=== PATIENT | male | born 1965 | race Caucasian/White ===

== ENCOUNTER 2019-07-31 07:32 | Outpatient (CLI) | payer OTHER, SELFPAY ==
[2019-07-31 07:53] LABS: Basophils Absolute Auto 0.04 K/mm3 (0.00-0.10); Basophils Percent Auto 0.7 % (0.0-1.0); Eosinophils Absolute Auto 0.25 K/mm3 (0.02-0.50); Eosinophils Percent Auto 4.7 % (1.0-6.0); Hematocrit 45.7 % (40.0-54.0); Hemoglobin 15.4 g/dL (14.0-18.0); Immature Granulocyte Absolute 0.01 K/mm3 (0.00-0.00); Immature Granulocyte Percent A 0.2 % (0.0-0.0); Lymphocytes Absolute Auto 1.75 K/mm3 (1.10-4.50); Lymphocytes Percent Auto 32.6 % (18.0-42.0); Mean Corpuscular HGB Conc 33.7 g/dL (32.0-36.0); Mean Corpuscular Hemoglobin 31.8 pg (27.0-31.0); Mean Corpuscular Volume 94.4 fL (78.0-102.0); Mean Platelet Volume 9.4 fl (8.7-11.0); Monocytes Absolute Auto 0.59 K/mm3 (0.10-0.90); Neutrophils Absolute Auto 2.7 K/mm3 (1.7-7.2); Neutrophils Percent Auto 50.8 % (50.0-70.0); Platelet Count Result 220 K/mm3 (150-420); Red Blood Count 4.84 M/mm3 (4.70-6.10); Red Cell Distribution Width 12.8 % (11.6-14.4); White Blood Count 5.4 K/mm3 (4.8-10.8)
[2019-07-31 08:04] LABS: Creatinine Urine 133.41 mg/dL (40-278); MALB Creatinine Ratio 5.2 mg/g (0-30)
[2019-07-31 08:06] LABS: Hemoglobin A1C 6.8 % (<5.7)
[2019-07-31 08:56] LABS: Alanine Aminotransferase 37 U/L (16-63); Albumin Level 4.1 g/dL (3.4-5.0); Alkaline Phosphatase 58 U/L (46-116); Anion Gap 12.3 mmol/L (7-16); Aspartate Amino Transferase 26 U/L (15-37); Bilirubin,Total 0.5 mg/dL (0.00-1.00); Blood Urea Nitrogen 25 mg/dL (7-18); Calcium 9.1 mg/dL (8.5-10.1); Carbon Dioxide 29 mmol/L (21-32); Chloride 104 mmol/L (98-108); Cholesterol 168 mg/dL (0-200); Estimated Glomerular Filt Rate > 60; Glucose 126 mg/dL (70-99); HDL Direct 85 mg/dL (40-60); LDL Cholesterol Calculated 76 mg/dL (<130); Osmolality Calculated 296 mOsm/kg (285-295); Potassium 5.3 mmol/L (3.5-5.1); Prostate Specific Antigen 1.4 ng/mL (< OR = 4.0); Sodium 140 mmol/L (136-145); Thyroid Stimulating Hormone 2.79 uIU/mL (0.36-3.74); Total Protein 7.6 g/dL (6.4-8.2); Triglycerides 35 mg/dL (0-150)
== END 2019-07-31 07:33 | disposition home or self-care (01) ==
LOC: CHSLAB 07:34
PROVIDERS: PCP Internal Medicine; Visit Provider Internal Medicine
DX: Z00.00 Encounter for general adult medical examination without abnormal findings (principal); E10.9 Type 1 diabetes mellitus without complications; Z12.5 Encounter for screening for malignant neoplasm of prostate
CPT/HCPCS: 36415; 80053; 80061; 82043; 83036; 84153; 84443; 85025; G0103

== ENCOUNTER 2020-01-13 08:04 | Outpatient (CLI) | payer OTHER, SELFPAY ==
[2020-01-13 09:04] LABS: Anion Gap 7 mmol/L (8-16); Blood Urea Nitrogen 21 mg/dL (7-18); Calcium 9.4 mg/dL (8.5-10.1); Carbon Dioxide 29 mmol/L (21-32); Chloride 104 mmol/L (98-108); Estimated Glomerular Filt Rate > 60; Glucose 100 mg/dL (70-99); Osmolality Calculated 293 mOsm/kg (285-295); Potassium 4.8 mmol/L (3.5-5.1); Sodium 140 mmol/L (136-145)
== END 2020-01-13 08:05 | disposition home or self-care (01) ==
LOC: CHSLAB 08:06
PROVIDERS: PCP Internal Medicine; Visit Provider Internal Medicine
DX: E87.5 Hyperkalemia (principal)
CPT/HCPCS: 36415; 80048

== ENCOUNTER 2020-09-23 08:17 | Outpatient (CLI) | payer OTHER, SELFPAY ==
[2020-09-23 08:33] LABS: Basophils Absolute Auto 0.03 K/mm3 (0.00-0.10); Basophils Percent Auto 0.6 % (0.0-1.0); Eosinophils Absolute Auto 0.14 K/mm3 (0.02-0.50); Eosinophils Percent Auto 2.9 % (1.0-6.0); Hematocrit 43.2 % (40.0-54.0); Hemoglobin 14.4 g/dL (14.0-18.0); Immature Granulocyte Absolute 0.01 K/mm3 (0.00-0.00); Immature Granulocyte Percent A 0.2 % (0.0-0.0); Lymphocytes Percent Auto 29.4 % (18.0-42.0); Mean Corpuscular HGB Conc 33.3 g/dL (32.0-36.0); Mean Corpuscular Hemoglobin 31.6 pg (27.0-31.0); Mean Corpuscular Volume 94.7 fL (78.0-102.0); Monocytes Absolute Auto 0.47 K/mm3 (0.10-0.90); Monocytes Percent Auto 9.9 % (2.0-11.0); Neutrophils Absolute Auto 2.7 K/mm3 (1.7-7.2); Platelet Count Result 203 K/mm3 (150-420); Red Blood Count 4.56 M/mm3 (4.70-6.10); Red Cell Distribution Width 12.7 % (11.6-14.4); White Blood Count 4.8 K/mm3 (4.8-10.8)
[2020-09-23 08:42] LABS: MALB Creatinine Ratio 10.5 mg/g (0-30); Microalbumin Urine Random < 13.0 mg/L
[2020-09-23 08:44] LABS: Hemoglobin A1C 6.7 % (<5.7)
[2020-09-23 10:23] LABS: Alanine Aminotransferase 42 U/L (16-63); Albumin Level 3.9 g/dL (3.4-5.0); Alkaline Phosphatase 60 U/L (46-116); Anion Gap 9 mmol/L (8-16); Aspartate Amino Transferase 28 U/L (15-37); Bilirubin,Total 0.6 mg/dL (0.00-1.00); Blood Urea Nitrogen 20 mg/dL (7-18); Calcium 9.2 mg/dL (8.5-10.1); Carbon Dioxide 28 mmol/L (21-32); Chloride 104 mmol/L (98-108); Cholesterol 163 mg/dL (0-200); Estimated Glomerular Filt Rate > 60; Folic Acid 7.9 ng/mL (8.6->20); Glucose 111 mg/dL (70-99); HDL Direct 81 mg/dL (40-60); LDL Cholesterol Calculated 77 mg/dL (<130); Osmolality Calculated 295 mOsm/kg (285-295); Potassium 4.5 mmol/L (3.5-5.1); Prostate Specific Antigen 1.6 ng/mL (< OR = 4.0); Sodium 141 mmol/L (136-145); Thyroid Stimulating Hormone 3.13 uIU/mL (0.36-3.74); Total Protein 7.2 g/dL (6.4-8.2); Triglycerides 26 mg/dL (0-150); Vitamin B12 435 pg/mL (193-986)
== END 2020-09-23 08:18 | disposition home or self-care (01) ==
PROVIDERS: PCP Internal Medicine; Visit Provider Internal Medicine
DX: Z00.00 Encounter for general adult medical examination without abnormal findings (principal); E11.9 Type 2 diabetes mellitus without complications; Z12.5 Encounter for screening for malignant neoplasm of prostate; R53.83 Other fatigue
CPT/HCPCS: 36415; 80053; 80061; 82043; 82607; 82746; 83036; 84153; 84443; 85025; G0103

== ENCOUNTER 2021-03-26 09:09 | Outpatient (CLI) | payer OTHER, SELFPAY ==
[2021-03-26 09:21] LABS: Basophils Absolute Auto 0.03 K/mm3 (0.00-0.10); Basophils Percent Auto 0.6 % (0.0-1.0); Eosinophils Absolute Auto 0.15 K/mm3 (0.02-0.50); Eosinophils Percent Auto 2.8 % (1.0-6.0); Hematocrit 45.3 % (40.0-54.0); Hemoglobin 15.3 g/dL (14.0-18.0); Immature Granulocyte Absolute 0.01 K/mm3 (0.00-0.00); Immature Granulocyte Percent A 0.2 % (0.0-0.0); Lymphocytes Percent Auto 31.8 % (18.0-42.0); Mean Corpuscular HGB Conc 33.8 g/dL (32.0-36.0); Mean Corpuscular Hemoglobin 32.4 pg (27.0-31.0); Monocytes Absolute Auto 0.62 K/mm3 (0.10-0.90); Monocytes Percent Auto 11.6 % (2.0-11.0); Neutrophils Absolute Auto 2.8 K/mm3 (1.7-7.2); Platelet Count Result 210 K/mm3 (150-420); Red Blood Count 4.72 M/mm3 (4.70-6.10); Red Cell Distribution Width 12.4 % (11.6-14.4); White Blood Count 5.4 K/mm3 (4.8-10.8)
[2021-03-26 09:28] LABS: Creatinine Urine 126.19 mg/dL (40-278); MALB Creatinine Ratio 10.3 mg/g (0-30); Microalbumin Urine Random < 13.0 mg/L
[2021-03-26 09:29] LABS: Hemoglobin A1C 7.1 % (<5.7)
[2021-03-26 10:24] LABS: Alanine Aminotransferase 39 U/L (16-63); Albumin Level 4.1 g/dL (3.4-5.0); Alkaline Phosphatase 61 U/L (46-116); Anion Gap 7 mmol/L (8-16); Aspartate Amino Transferase 26 U/L (15-37); Bilirubin,Total 0.6 mg/dL (0.00-1.00); Blood Urea Nitrogen 20 mg/dL (7-18); Calcium 8.8 mg/dL (8.5-10.1); Carbon Dioxide 28 mmol/L (21-32); Chloride 103 mmol/L (98-108); Cholesterol 154 mg/dL (0-200); Estimated Glomerular Filt Rate > 60; Folic Acid 7.7 ng/mL (8.6->20); Glucose 112 mg/dL (70-99); HDL Direct 80 mg/dL (40-60); LDL Cholesterol Calculated 70 mg/dL (<130); Osmolality Calculated 289 mOsm/kg (285-295); Potassium 4.7 mmol/L (3.5-5.1); Sodium 138 mmol/L (136-145); Thyroid Stimulating Hormone 2.11 uIU/mL (0.36-3.74); Total Protein 7.5 g/dL (6.4-8.2); Triglycerides < 22 mg/dL (0-150); Vitamin B12 426 pg/mL (193-986)
== END 2021-03-26 09:10 | disposition home or self-care (01) ==
LOC: CHSLAB 09:10
PROVIDERS: PCP Internal Medicine; Visit Provider Internal Medicine
DX: E11.9 Type 2 diabetes mellitus without complications (principal); R53.83 Other fatigue
CPT/HCPCS: 36415; 80053; 80061; 82043; 82607; 82746; 83036; 84443; 85025

== ENCOUNTER 2021-10-05 09:34 | Outpatient (CLI) | payer OTHER, SELFPAY ==
[2021-10-05 09:49] LABS: Basophils Absolute Auto 0.03 K/mm3 (0.00-0.10); Basophils Percent Auto 0.6 % (0.0-1.0); Eosinophils Absolute Auto 0.11 K/mm3 (0.02-0.50); Eosinophils Percent Auto 2.2 % (1.0-6.0); Hematocrit 46.6 % (40.0-54.0); Hemoglobin 15.9 g/dL (14.0-18.0); Immature Granulocyte Absolute 0.02 K/mm3 (0.00-0.00); Immature Granulocyte Percent A 0.4 % (0.0-0.0); Lymphocytes Absolute Auto 1.54 K/mm3 (1.10-4.50); Mean Corpuscular HGB Conc 34.1 g/dL (32.0-36.0); Mean Corpuscular Hemoglobin 32.6 pg (27.0-31.0); Mean Corpuscular Volume 95.5 fL (78.0-102.0); Mean Platelet Volume 9.1 fl (8.7-11.0); Monocytes Absolute Auto 0.59 K/mm3 (0.10-0.90); Monocytes Percent Auto 11.9 % (2.0-11.0); Neutrophils Absolute Auto 2.7 K/mm3 (1.7-7.2); Neutrophils Percent Auto 53.9 % (50.0-70.0); Platelet Count Result 228 K/mm3 (150-420); Red Blood Count 4.88 M/mm3 (4.70-6.10); Red Cell Distribution Width 12.8 % (11.6-14.4)
[2021-10-05 10:09] LABS: Creatinine Urine 98.06 mg/dL (40-278); Hemoglobin A1C 6.5 % (<5.7); MALB Creatinine Ratio 13.2 mg/g (0-30); Microalbumin Urine Random < 13.0 mg/L
[2021-10-05 10:34] LABS: Alanine Aminotransferase 54 U/L (16-63); Alkaline Phosphatase 62 U/L (46-116); Anion Gap 6 mmol/L (8-16); Aspartate Amino Transferase 36 U/L (15-37); Bilirubin,Total 0.6 mg/dL (0.00-1.00); Blood Urea Nitrogen 16 mg/dL (7-18); Calcium 8.8 mg/dL (8.5-10.1); Carbon Dioxide 30 mmol/L (21-32); Chloride 103 mmol/L (98-108); Cholesterol 166 mg/dL (0-200); Estimated Glomerular Filt Rate > 60; Folic Acid 9.1 ng/mL (8.6->20); Glucose 53 mg/dL (70-99); HDL Direct 89 mg/dL (40-60); LDL Cholesterol Calculated 72 mg/dL (<130); Osmolality Calculated 286 mOsm/kg (285-295); Potassium 4.3 mmol/L (3.5-5.1); Prostate Specific Antigen 1.7 ng/mL (< OR = 4.0); Sodium 139 mmol/L (136-145); Total Protein 7.9 g/dL (6.4-8.2); Triglycerides 24 mg/dL (0-150); Vitamin B12 430 pg/mL (193-986)
== END 2021-10-05 09:35 | disposition home or self-care (01) ==
LOC: CHSLAB 09:36
PROVIDERS: PCP Internal Medicine; Visit Provider Internal Medicine
DX: R53.83 Other fatigue (principal); E11.9 Type 2 diabetes mellitus without complications; Z12.5 Encounter for screening for malignant neoplasm of prostate
CPT/HCPCS: 36415; 80053; 80061; 82043; 82607; 82746; 83036; 84153; 84443; 85025; G0103

== ENCOUNTER 2022-03-08 07:26 | Outpatient (CLI) | payer OTHER, SELFPAY ==
[2022-03-08 07:55] LABS: Anion Gap 5 mmol/L (8-16); Blood Urea Nitrogen 20 mg/dL (7-18); Carbon Dioxide 31 mmol/L (21-32); Chloride 102 mmol/L (98-108); Estimated Glomerular Filt Rate > 60; Glucose 153 mg/dL (70-99); Osmolality Calculated 291 mOsm/kg (285-295); Sodium 138 mmol/L (136-145)
[2022-03-12 06:59] LABS: C-Peptide 0.16 ng/mL (0.80-3.85)
== END 2022-03-08 07:27 | disposition home or self-care (01) ==
LOC: CHSLAB 07:27
PROVIDERS: PCP Internal Medicine; Visit Provider Internal Medicine Endocrinology, Diabetes & Metabolism
DX: E10.9 Type 1 diabetes mellitus without complications (principal)
CPT/HCPCS: 36415; 80048; 84681

== ENCOUNTER 2022-12-14 07:18 | Outpatient (CLI) | payer OTHER, SELFPAY ==
[2022-12-14 07:33] LABS: Basophils Absolute Auto 0.04 K/mm3 (0.00-0.10); Basophils Percent Auto 0.4 % (0.0-1.0); Eosinophils Absolute Auto 0.15 K/mm3 (0.02-0.50); Eosinophils Percent Auto 1.7 % (1.0-6.0); Hematocrit 42.2 % (40.0-54.0); Hemoglobin 14.3 g/dL (14.0-18.0); Immature Granulocyte Absolute 0.04 K/mm3 (0.00-0.00); Immature Granulocyte Percent A 0.4 % (0.0-0.0); Lymphocytes Absolute Auto 1.33 K/mm3 (1.10-4.50); Lymphocytes Percent Auto 14.8 % (18.0-42.0); Mean Corpuscular HGB Conc 33.9 g/dL (32.0-36.0); Mean Corpuscular Hemoglobin 32.5 pg (27.0-31.0); Mean Corpuscular Volume 95.9 fL (78.0-102.0); Mean Platelet Volume 9.2 fl (8.7-11.0); Monocytes Absolute Auto 0.65 K/mm3 (0.10-0.90); Monocytes Percent Auto 7.2 % (2.0-11.0); Neutrophils Absolute Auto 6.8 K/mm3 (1.7-7.2); Neutrophils Percent Auto 75.5 % (50.0-70.0); Platelet Count Result 217 K/mm3 (150-420); Red Cell Distribution Width 12.4 % (11.6-14.4)
[2022-12-14 07:38] LABS: Creatinine Urine 105.52 mg/dL (40-278)
[2022-12-14 07:58] LABS: MALB Creatinine Ratio 12.3 mg/g (0-30); Microalbumin Urine Random < 13.0 mg/L
[2022-12-14 08:33] LABS: Alanine Aminotransferase 40 U/L (16-63); Albumin Level 3.9 g/dL (3.4-5.0); Alkaline Phosphatase 63 U/L (46-116); Anion Gap 6 mmol/L (8-16); Aspartate Amino Transferase 25 U/L (15-37); Bilirubin,Total 0.4 mg/dL (0.00-1.00); Blood Urea Nitrogen 17 mg/dL (7-18); Carbon Dioxide 30 mmol/L (21-32); Chloride 103 mmol/L (98-108); Cholesterol 154 mg/dL (0-200); Estimated Glomerular Filt Rate > 60; Glucose 215 mg/dL (70-99); HDL Direct 63 mg/dL (40-60); LDL Cholesterol Calculated 82 mg/dL (<130); Osmolality Calculated 295 mOsm/kg (285-295); Potassium 5.1 mmol/L (3.5-5.1); Prostate Specific Antigen 1.3 ng/mL (< OR = 4.0); Sodium 139 mmol/L (136-145); Thyroid Stimulating Hormone 2.59 uIU/mL (0.36-3.74); Total Protein 7.3 g/dL (6.4-8.2); Triglycerides 46 mg/dL (0-150)
== END 2022-12-14 07:19 | disposition home or self-care (01) ==
LOC: CHSLAB 07:19
PROVIDERS: PCP Internal Medicine; Visit Provider Internal Medicine
DX: Z00.00 Encounter for general adult medical examination without abnormal findings (principal); Z12.5 Encounter for screening for malignant neoplasm of prostate; E10.649 Type 1 diabetes mellitus with hypoglycemia without coma
CPT/HCPCS: 36415; 80053; 80061; 82043; 84153; 84443; 85025; G0103

== ENCOUNTER 2023-10-30 16:37 | Outpatient (CLI) | payer OTHER, SELFPAY ==
[2023-10-30 18:59] LABS: Toxigenic C. Diff NEGATIVE (NEGATIVE)
== END 2023-10-30 16:38 | disposition home or self-care (01) ==
LOC: CHSLAB 16:39
PROVIDERS: PCP Internal Medicine; Visit Provider Internal Medicine
DX: R19.7 Diarrhea, unspecified (principal)
CPT/HCPCS: 87045; 87427; 87449; 87493

== ENCOUNTER 2023-11-05 16:20 | Outpatient (CLI) | payer OTHER, SELFPAY ==
[2023-11-08 03:08] LABS: Tissue Transglutaminase IgA Ab <1.0 U/mL
== END 2023-11-05 16:21 | disposition home or self-care (01) ==
PROVIDERS: PCP Internal Medicine; Visit Provider Internal Medicine
DX: R19.7 Diarrhea, unspecified (principal)
CPT/HCPCS: 36415; 83516

== ENCOUNTER 2023-11-10 10:17 | Observation (INO) | payer OTHER, SELFPAY ==
--- NOTE | 2023-11-10 | ECHO_ITS ---
Patient Info Name: Navjot Peralta Age: 58 years : 1965 Gender: Male Ht: 74 in Wt: 223 lbs BSA: 2.32 m2 HR: 92 bpm BP: 135 / 85 mmHg Technical Quality: Fair Exam Date: 11/10/2023 3:39 PM Exam Location: Echo Lab Patient Status: Outpatient Admit Date: 11/10/2023 Staff Ordering Physician: Josh Alvarez APRN [employer] Teacher: Maryam Galdamez RDCS Attending Provider: William Armenta MD Referring Physician: Antonio WEBB; Exam Type: CA echo doppler w bubble study Study Info Indications - TIA workup Complete two-dimensional, color flow and Doppler transthoracic echocardiogram is performed with agitated saline. Contrast/Agitated Saline Contrast/Ag. Saline: Agitated Saline Amount: 14.00 ml IV Access Condition: patent with no signs of infiltration Summary 1. Left ventricular chamber dimension is normal. 2. Left ventricular systolic function is normal, estimated at 65-70%. 3. The left ventricular diastolic function is normal. 4. E/e' 8 is minimally elevated. 5. There is trace aortic valve regurgitation. 6. There is trace mitral valve regurgitation. 7. There is trace tricuspid valve regurgitation. 8. No pulmonary hypertension, estimated pulmonary arterial systolic pressure is 23 mmHg. 9. There is trace pulmonic regurgitation. Left Ventricle E/e' 8 is minimally elevated. Left ventricular chamber dimension is normal. Left ventricular systolic function is normal, estimated at 65-70%. The left ventricular diastolic function is normal. Right Ventricle Right ventricular systolic function is normal and with normal TAPSE 2.3 cm. Right ventricular chamber dimension is normal. Left Atria Left atrial chamber dimension is normal. Right Atria Right atrial chamber dimension is normal. Atrial Septum Agitated saline injection opacified right side cardiac chambers without shunt to left side cardiac chambers. Intact interatrial septum visualized by 2D and agitated saline imaging. Aortic Valve The aortic valve is trileaflet. There is no aortic valve stenosis. There is trace aortic valve regurgitation. Pulmonic Valve There is trace pulmonic regurgitation. Mitral Valve There is no mitral valve stenosis. There is trace mitral valve regurgitation. Tricuspid Valve There is trace tricuspid valve regurgitation. No pulmonary hypertension, estimated pulmonary arterial systolic pressure is 23 mmHg. Pericardium/Pleural There is no pericardial effusion. Inferior Vena Cava Normal inferior vena cava with >50% collapse upon inspiration consistent with normal right atrial pressure, 5 mmHg. Aorta The aortic root size at the sinus of Valsalva is normal. Left Ventricular Outflow Tract Name Value Normal LVOT 2D LVOT Diameter 2.2 cm LVOT Doppler LVOT Peak Gradient 8 mmHg LVOT Mean Gradient 3 mmHg LVOT VTI 25 cm LVOT VTI/AV VTI Ratio 1.2 LVOT Stroke Volume 99 ml LVOT CO 7.4 l/min LVOT CI 3.2 l/min/m2 Pulmonic Valve
--- NOTE | ~2023-11-10 | MR_ITS ---
EXAMINATION: MR brain/brain stem wo/w con DATE: 11/10/2023 14:28 INDICATION: Cerebrovascular accident. Vision loss. TECHNIQUE: Magnetic resonance imaging (MRI) of the brain and brainstem was performed without and with 20 mL MultiHance intravenous contrast. COMPARISON: Brain MRI 04/24/2013 FINDINGS: There is no intracranial hemorrhage, acute infarction, or abnormal intracranial mass lesion . The ventricles are normal in size. There is mild mucosal thickening in the paranasal sinuses. The o rbits are normal. The mastoid air cells are normal. IMPRESSION: 1. Normal brain. Reviewed, dictated and finalized at location A. IMPRESSION: 1. Normal brain.
--- NOTE | ~2023-11-10 | CT_ITS ---
EXAMINATION: CT brain wo con DATE: 11/10/2023 11:42 INDICATION: Peripheral vision loss. Blurred vision. TECHNIQUE: Computed tomography (CT) of the head was performed without intravenous contrast. The mA wa s adjusted according to patient size. Iterative reconstruction technique was employed. The dose-lengt h product was 605.33 mGy-cm. COMPARISON: Head CT 02/26/2008 FINDINGS: There is no intracranial hemorrhage, acute infarction, or abnormal intracranial mass lesion . The ventricles are normal in size. The orbits are normal. There is mild mucosal thickening in the p aranasal sinuses. The mastoid air cells are normal. IMPRESSION: 1. Normal brain. Reviewed, dictated and finalized at location A. IMPRESSION: 1. Normal brain.
--- NOTE | ~2023-11-10 | CT_ITS ---
EXAMINATION: CTA brain carotid DATE: 11/10/2023 18:34 INDICATION: vertebrobasilar TIA TECHNIQUE: Computed tomographic angiography (CTA) of the head and neck was performed with 100 mL Omni paque-350 intravenous contrast. Automated exposure control and iterative reconstruction technique wer e employed. The dose-length product was 1365.42 mGy-cm. Maximum intensity projection and volume rende red 3D-reconstructions were created by the technologist on a separate workstation. COMPARISON: CT and MR brain, same date. FINDINGS: CT BRAIN: No acute large vessel infarct, intracranial hemorrhage, mass, or hydrocephalus. CTA HEAD: No large vessel occlusion, aneurysm, high flow vascular malformation, nidus or extravasation. Symmetr ic parenchymal enhancement. Patent cerebral veins. CTA NECK: Aortic arch and proximal great vessels: Normal arch anatomy. No plaque. Right common carotid, carotid bifurcation, and internal carotid artery: No plaque.There is 0% stenosi s of the proximal right internal carotid artery relative to normal distal artery lumen diameter (NASC ET criteria). Left common carotid, carotid bifurcation, and internal carotid artery: No plaque.There is 0% stenosis of the proximal left internal carotid artery relative to normal distal artery lumen diameter (NASCET criteria). Vertebral arteries: No significant plaque or stenosis. The intradural right vertebral artery terminat es in the right PICA, a normal variant. The left vertebral artery is dominant. Other findings: Moderate multilevel cervical degenerative disc disease. Mild coronary artery calcific ation. IMPRESSION: No large vessel intracranial occlusion, high-grade intracranial stenosis, or aneurysm. No carotid or vertebral artery occlusion, dissection, or significant stenosis. Reviewed, dictated and finalized at location K. IMPRESSION: No large vessel intracranial occlusion, high-grade intracranial stenosis, or an eurysm. No carotid or vertebral artery occlusion, dissection, or significant stenosis.
--- NOTE | 2023-11-10 10:56 | ECG_ITS ---
Test Date: 2023-11-10 11:12:54 Measurements Intervals [place] Rate: 88 P: 28 OK: 159 QRS: 61 QRSD: 100 T: 29 QT: 358 QTc: 434 Interpretive Statements SINUS RHYTHM POSSIBLE RIGHT VENTRICULAR CONDUCTION DELAY [RSR (QR) IN V1/V2] OTHERWISE NORMAL ECG No previous ECG available for comparison Electronically Signed On 11-10-2023 12:38:08 CDT by Sukumar Mallory M.D.
--- NOTE | 2023-11-10 10:59 | ED.GENADULT ---
HPI - General Adult General Chief complaint: Unspecified Stated complaint: visual changes Time Seen by Provider: 11/10/23 10:47 History of Present Illness HPI narrative: Pt presents with peripheral vision loss that lasted about 60-90 minutes while at work this morning before resolving. Pt denies any other neuro symptoms or GUTIERREZ. Pt has DM but no neuro hx. Pt has also had several episodes of diarrhea a day for 3 weeks and has had negative stool studies and is negative for Celiac disease per pt. Related Data Allergies Allergy/AdvReac Type Severity Reaction Status Date / Time codeine Allergy Unknown Unknown Verified 11/10/23 13:19 Review of Systems Review of Systems: All systems reviewed & are unremarkable except as noted in HPI and below PMFSH Past Medical History Medical History Chondrodermatitis nodularis helicis Collapsed lung Collapsed lung Diabetes type I Dorsalgia Hx of seizure disorder Hypoglycemia unawareness associated with type 1 diabetes mellitus Partial seizures Skin neoplasm Surgical History Surgical History No pertinent past surgical history Family History Family History (Updated 11/10/23 @ 13:26 by Lorrie Vergara RN) Father Adult celiac disease Dementia Social History Social History Social History: Caffiene-4 cups coffee Smoking status: Never smoker Second hand tobacco smoke exposure: No Alcohol intake: current Drinks per week: 3 Alcohol use details: socially Substance use: never Do You Feel Safe in your Home?: Yes Lack of Transportation: No Lack of Food: Never True Current Housing: I Have Housing Concerned About Future Housing: No Difficulty Paying Gas/Electric Bills: No Difficulty Paying for Meds: No Currently Unemployed: No Education: Bachelor's Degree Difficulty w/ Childcare or Family Care: No Spiritual care concerns: No Exam HENMT: Head: normal to inspection Eyes: General: appearance normal, both eyes and all related structures Visual Barber: normal visual barber by confrontation Alignment and Position: alignment normal Periorbital: periorbital findings normal Eyelids: eyelids normal Conjunctivae: conjunctivae normal Sclera: sclerae normal Pupils: Equal, round and reactive pupils present EOM: EOMs intact bilaterally Neck: Neck: normal visual inspection and full ROM Resp: Effort & Inspection: normal respiratory effort Auscultation: clear to auscultation bilaterally Cardio: Rate: regular rate Rhythm: regular rhythm GI: Inspection: normal to inspection Auscultation: normal bowel sounds Skin: General skin exam: normal color Lesions: no lesions Rashes: no rashes Neuro: General: patient oriented x3 Cranial nerves: Yes CN's II-XII intact bilaterally, Yes facial sensation intact/muscles of mastication intact, Yes Equal, round and reactive pupils present, Yes Bilaterally intact EOM present and Yes Nystagmus not present Speech: normal speech Motor exam (neuro): 5/5 motor strength present throughout Sensory Exam: normal sensation Extrem: General: normal to inspection, full ROM and no clubbing, cyanosis or edema Psych: Appearance: grossly normal Mental Status: mental status grossly normal Speech and movement: Normal speech and movement present Affect: normal affect Attitude: cooperative Thought process: Normal thought process present Thought content: Yes Normal thought content present Insight: Good insight present (Psych) Course Vital Signs Vital signs: Vital Signs Pulse Rate 89 11/10/23 11:16 Temperature 97.8 F 11/10/23 13:22 Pulse Rate 99 11/10/23 16:00 Respiratory Rate 18 11/10/23 13:22 Blood Pressure 131/76 11/10/23 13:22 Pulse Oximetry 99 11/10/23 13:22 Medical Decision Making MDM Narrative Medical decision making narrative:
[2023-11-10 11:16] VITALS: PULSE 89
[2023-11-10 11:25] VITALS: RESP 20
[2023-11-10 11:28] LABS: Basophils Percent Auto 0.3 % (0.2-1.2); Eosinophils Absolute Auto 0.1 K/mm3 (0-0.3); Eosinophils Percent Auto 0.6 % (0-4.4); Hematocrit 43.3 % (42.0-52.0); Hemoglobin 14.8 g/dL (14.0-18.0); Immature Granulocyte Absolute 0.03 K/mm3 (0.00-0.031); Immature Granulocyte Percent A 0.3 % (0-0.5); Lymphocytes Absolute Auto 1.05 K/mm3 (0.9-3.2); Lymphocytes Percent Auto 11.1 % (18.3-44.2); Mean Corpuscular HGB Conc 34.2 g/dl (32-36); Mean Corpuscular Hemoglobin 32.4 pg (26-34); Mean Corpuscular Volume 94.7 fl (80-100); Mean Platelet Volume 8.9 fl (7.4-10.4); Monocytes Absolute Auto 0.9 K/mm3 (0.1-0.6); Monocytes Percent Auto 9.8 % (2.6-8.5); Neutrophils Absolute Auto 7.4 K/mm3 (1.3-6.7); Neutrophils Percent Auto 77.9 % (45.5-73.1); Platelet Count Result 222 k/mm3 (150-375); Red Blood Count 4.57 M/mm3 (4.6-6.20); Red Cell Distribution Width 12.8 % (11.5-14.5); White Blood Count 9.5 K/mm3 (4.5-10.0)
[2023-11-10 11:37] LABS: Appearance Urine Clear (Clear); Color Urine Yellow (Yellow); Glucose Urine UA Negative (Negative); Ketones Urine Trace mg/dL (Negative); Protein Urine Negative (Negative); Specific Grav Ur 1.009 (1.001-1.035); pH Urine 5.5 (5.0-9.0)
[2023-11-10 11:38] LABS: Add Urine Microscopic? YES; Bacteria Urine None Seen /hpf; Bilirubin Urine Negative (Negative); Blood Urine Negative (Negative); Leukocyte Esterase Ur 2+ LEU/UL (Negative); Nitrate Urine Negative (Negative); Non Pathogenic Casts 0-2; RBC Urine 0-2 /hpf (0-2); Squamous Epithelial Cell Urine None Seen /hpf (Few); Urobilinogen Urine 0.2 mg/dL (<2.0)
[2023-11-10 11:40] LABS: Alanine Aminotransferase 40 U/L (6-50); Albumin Level 4.5 g/dL (3.5-5.1); Alkaline Phosphatase 58 U/L (38-126); Anion Gap 10 mmol/L (4-12); Aspartate Amino Transferase 42 U/L (17-59); Bilirubin,Total 0.7 mg/dL (0.2-1.3); Blood Urea Nitrogen 19 mg/dL (9-20); Calcium 8.9 mg/dL (8.4-10.2); Carbon Dioxide 26 mmol/L (22-30); Chloride 99 mmol/L (98-107); Estimated Glomerular Filt Rate > 60; Glucose 165 mg/dL (65-110); Potassium 4.4 mmol/L (3.4-5.0); Sodium 135 mmol/L (137-145)
[2023-11-10 11:48] LABS: INR 0.9; Prothrombin Time 13.1 Seconds (11.1-14.7)
[2023-11-10 11:49] LABS: Partial Thromboplastin Time 27.4 Seconds (22.3-36.8)
[2023-11-10 11:51] LABS: Troponin I < 0.012 ng/mL (0.000-0.034)
[2023-11-10 12:35] VITALS: BP 135/83; PULSE 92; RESP 16; O2SAT 97
[2023-11-10 13:06] LABS: Cholesterol 146 mg/dL (0-200); HDL Direct 71 mg/dL; Triglycerides 41 mg/dL (<150)
[2023-11-10 13:18] LABS: LDL Cholesterol Direct 59 mg/dL
[2023-11-10 13:22] VITALS: BP 131/76; PULSE 82; RESP 18; TEMP 36.6; O2SAT 99
--- NOTE | 2023-11-10 13:23 | PM.IMHP ---
H&P: HPI History of Present Illness Date/Time: 11/10/23 13:23 Chief Complaint: Transient visual disturbance, TIA versus CVA Narrative: This is a 58-year-old male patient insulin-dependent diabetic patient who presented to the emergency department today with transient visual disturbance where he lost peripheral vision bilaterally while at work. Patient denies any strenuous activity at the time visual disturbance. He stated that the whole episode lasted about 15 minutes. He called his and came to the emergency department. Patient has history of hypoglycemia with his aunt treatment but blood sugar is controlled today. Patient has also been having frequent diarrhea ongoing for the last 3 weeks. He has undergone outpatient workup with negative C diff, negative open parasites, negative culture and is currently being tested for possible celiac disease which he states his father was diagnosed with in his 70s. Patient's usual routine for glucose management includes NovoLog 1 unit per 6 g of carbs plus 1 unit for every 40 points above 120 with pre meal blood sugar check. Patient does have continues glucose monitor present which will need to be removed for MRI. He also usually takes 28 units of Lantus with evening meal. We discussed in depth increasing the Lantus and only using sliding scale throughout mealtime usage rather than calculating for grams of carbs plus sliding scale. Patient somewhat hesitant to even temporarily change his routine. Review of Systems Review of Systems: All systems reviewed & are unremarkable except as noted in HPI and below PMFSH Past Medical History Medical History Chondrodermatitis nodularis helicis Collapsed lung Collapsed lung Diabetes type I Dorsalgia Hx of seizure disorder Hypoglycemia unawareness associated with type 1 diabetes mellitus Partial seizures Skin neoplasm Surgical History Surgical History No pertinent past surgical history Family History Family History (Updated 11/10/23 @ 13:26 by Lorrie Vergara RN) Father Adult celiac disease Dementia Social History Social History Social History: Caffiene-4 cups coffee Smoking status: Never smoker Second hand tobacco smoke exposure: No Alcohol intake: current Drinks per week: 3 Alcohol use details: socially Substance use: never Do You Feel Safe in your Home?: Yes Lack of Transportation: No Lack of Food: Never True Current Housing: I Have Housing Concerned About Future Housing: No Difficulty Paying Gas/Electric Bills: No Difficulty Paying for Meds: No Currently Unemployed: No Education: Bachelor's Degree Difficulty w/ Childcare or Family Care: No Spiritual care concerns: No Meds Home Medications and Allergies Home Medications Medication Instructions Recorded Confirmed Type glucose 4 gram chewable tablet 4 g PO Q15M PRN hypoglycemia #60 03/04/22 11/10/23 Rx (Dex4 Glucose) tabs blood sugar diagnostic (Accu-Chek #400 strips 09/12/22 11/10/23 Rx Fabiola Plus test strips) urine glucose-ketones test #50 ea 04/29/23 11/10/23 Rx blood-glucose sensor (Dexcom G7 #9 ea 09/09/23 11/10/23 Rx Sensor device) insulin aspart U-100 100 unit/mL 6 unit (0.06 mL) subcut TID #15 mL 09/09/23 11/10/23 Rx (3 mL) subcutaneous pen (Novolog FlexPen U-100 Insulin aspart) insulin glargine 100 unit/mL (3 28 unit (0.28 mL) subcut QPM #45 mL 09/09/23 11/10/23 Rx mL) subcutaneous pen (Lantus Solostar U-100 Insulin) lisinopril 2.5 mg tablet 2.5 mg PO DAILY #90 tabs 09/09/23 11/10/23 Rx ostomy supplies (Skin Prep Wipes) #50 ea 09/09/23 11/10/23 Rx pen needle, diabetic 31 gauge x #450 ea 09/09/23 11/10/23 Rx 5/16 (Pen Needle) Allergies Allergy/AdvReac Type Severity Reaction Status Date / Time codeine Allergy Unknown Unknown Verified
[2023-11-10 13:27] VITALS: BMI 28.7
[2023-11-10 16:00] VITALS: PULSE 99
[2023-11-10 16:45] LABS: Glucose Point of Care 131 mg/dl (65-105)
[2023-11-10] MEDS: INSULIN GLARGINE (*BKC) 100 UNITS/ML 40 UNITS SUB-Q (16:56)
--- NOTE | 2023-11-10 17:33 | WPDNEURCNPN ---
Assessment and Plan Assessment and plan (1) Transient vision disturbance of both eyes: Code(s): H53.9 - Unspecified visual disturbance Status: Acute (2) Insulin dependent diabetes mellitus: Status: Acute (3) Diarrhea: Code(s): R19.7 - Diarrhea, unspecified Status: Acute Plan The visual disturbance without any other metabolic problems or dehydration in a patient history of diabetes mellitus does raise possibility of a vascular event in which case since the symptoms of bilateral we have to think of basilar artery problem. MRI of the brain did not show any abnormality. I reviewed the findings so far. I would suggest a CT angiogram of the head and neck. I noted his LDL was already the lower and upper we do not into intervene. He has a Force worried about the chronic diarrhea and I shall leave this up to you and if he is seeing a general education professor investigate this further. Consult date: 11/10/23 HPI: Navjot Peralta is a 58 year old male with history of diabetes mellitus for last 22 years presented with the onset of symptoms of visual disturbance which lasted for approximately 1 hour. This unprovoked and he does not think that he had any nausea vomiting or vertigo or headache. He never had symptoms such as this before. He was disturbed that he went to a nurse nearby and who examined him and found blood pressure and vital signs were all within normal range. Subsequently his brought him to the emergency room. A CT scan of brain was performed which did not show any significant abnormality. By now an MRI of the brain has also been performed which did not show any abnormality. Symptoms have resolved and did not recur. He did not have any weakness or in upper lower limbs. He did not have any difficulties walking. Review of Systems Review of Systems: No recent febrile illness or major trauma reported. All systems reviewed & are unremarkable except as noted in HPI and below PMFSH Past Medical History Medical History Chondrodermatitis nodularis helicis Collapsed lung Collapsed lung Diabetes type I Dorsalgia Hx of seizure disorder Hypoglycemia unawareness associated with type 1 diabetes mellitus Partial seizures Skin neoplasm Surgical History Surgical History No pertinent past surgical history Family History Family History (Updated 11/10/23 @ 13:26 by Lorrie Vergara RN) Father Adult celiac disease Dementia Social History Social History Social History: Caffiene-4 cups coffee Smoking status: Never smoker Second hand tobacco smoke exposure: No Alcohol intake: current Drinks per week: 3 Alcohol use details: socially Substance use: never Do You Feel Safe in your Home?: Yes Lack of Transportation: No Lack of Food: Never True Current Housing: I Have Housing Concerned About Future Housing: No Difficulty Paying Gas/Electric Bills: No Difficulty Paying for Meds: No Currently Unemployed: No Education: Bachelor's Degree Difficulty w/ Childcare or Family Care: No Spiritual care concerns: No Meds Home Medications and Allergies Home Medications Medication Instructions Recorded Confirmed Type glucose 4 gram chewable tablet 4 g PO Q15M PRN hypoglycemia #60 03/04/22 11/10/23 Rx (Dex4 Glucose) tabs blood sugar diagnostic (Accu-Chek #400 strips 09/12/22 11/10/23 Rx Fabiola Plus test strips) urine glucose-ketones test #50 ea 04/29/23 11/10/23 Rx blood-glucose sensor (Dexcom G7 #9 ea 09/09/23 11/10/23 Rx Sensor device) insulin aspart U-100 100 unit/mL 6 unit (0.06 mL) subcut TID #15 mL 09/09/23 11/10/23 Rx (3 mL) subcutaneous pen (Novolog FlexPen U-100 Insulin aspart) insulin glargine 100 unit/mL (3 28 unit (0.28 mL) subcut QPM #45 mL 09/09/23 11/10/23 Rx mL) subcutane
--- NOTE | 2023-11-10 19:33 | PM.DS ---
DS: Admitting Diagnosis Discharge Date 11/10/2023 Admitting Diagnosis transient vision disturbance of both eyes, diarrhea, insulin-dependent diabetes mellitus DS: Discharge Diagnosis Discharge Diagnosis (1) Transient vision disturbance of both eyes: Code(s): H53.9 - Unspecified visual disturbance Status: Acute (2) Diarrhea: Code(s): R19.7 - Diarrhea, unspecified Status: Acute (3) Insulin dependent diabetes mellitus: Status: Acute DS: Summary Hospital Course Reason for hospitalization: TIA versus CVA workup Hospital Course: This is a 58-year-old male patient past medical history of insulin-dependent diabetes admitted to the hospital due to transient bilateral vision disturbance that occurred while patient was at work appear he states that he lost peripheral vision bilaterally without exertional activity while at work. He notes the symptoms fully resolved in less than an hour. Patient also reports ongoing diarrhea for the last 3 weeks already undergone outpatient workup with negative C diff negative culture negative O&P. patient was admitted observation status for MRI, echocardiogram with bubble study, lipid panel, A1c and neurology consultation. Neurology added CTA head neck due to bilateral vision disturbance and concern for basilar artery involvement. CTA unremarkable, MRI negative, echocardiogram no PFO, trace valvular regurgitation and all 4 valves normal EF and normal diastolic compliance. Discussed all test results with patient and offered to have him stay overnight for gastroenterology consult but patient stated that his vision symptoms have resolved and all of his tests were negative for stroke. He is agreeable to 81 mg of aspirin daily and outpatient follow-up with Neurology. He is also going to call Gastroenterology office regarding diarrhea. LDL is below goal and patient and his for adamantly opposed to cholesterol medication. Work note provided. Instructions to obtain dilated eye exam also discussed. Report was found in the record from October of 2022 where he had normal dilated eye exam with instructions to follow-up in 12 months. A copy of this form was provided to the patient and he stated he would call to schedule eye exam. Status at Discharge Cognitive/behavioral status at discharge: Awake alert oriented and pleasant Functional status at discharge: independent ambulation Time Spent with Patient Time attestation: Total time spent providing and/or coordinating discharge services: 35 minutes Time spent: Greater than 30 minutes Exam Narrative: GENERAL: Well-appearing, well-nourished, and in no acute distress. HEAD: Normocephalic, atraumatic. ENT:? Mucous membranes moist. CHEST: Clear to auscultation.? No respiratory distress. HEART: Regular rate and rhythm. ? Normal peripheral pulses. ABDOMEN: Soft, nontender, nondistended. EXTREMITIES: Normal range of motion. No peripheral edema. SKIN: Warm dry normal color NEURO: Alert and oriented x3. Equal strength bilaterally, no visual disturbance, sensation equal bilaterally, no residual neurologic symptoms or signs PSYCH: Normal mood and affect DS: Data Data Completed and Pending Completed studies during hospitalization: MRI brain with and without contrast, echocardiogram with bubble study, CTA head neck CT head noncontrast, chest x-ray, labs Pending studies at discharge: urine culture in process Labs on day of discharge: Labs from last 24 hours 11/10/23 11/10/23 11/10/23 16:35 12:15 11:19 WBC RBC Hgb Hct MCV MCH MCHC RDW Plt Count MPV Immature Gran % (Auto) Neut % (Auto) Lymph % (Auto) [place] % (Auto) Eos % (Auto) Baso % (Auto) Lymph # (Auto) [place] # (Auto) Eos # (Auto) Baso # (Auto) Abs Immat Gran (auto) Absolute Neuts (auto) Absolute Nucleated RBC Nucleated RBC % PT 13.1 INR 0.9 APTT 27.4 Sodium 135 L [place]
== END 2023-11-10 19:50 | disposition home or self-care (01) ==
LOC: ANHED 12:20 → ANH2MED 12:34
PROVIDERS: Nurse Practitioner; Admitting Provider Internal Medicine; Emergency Provider Emergency Medicine; PCP Internal Medicine; Visit Provider Internal Medicine
DX: H53.123 Transient visual loss, bilateral (principal); E10.9 Type 1 diabetes mellitus without complications; Z79.4 Long term (current) use of insulin
CPT/HCPCS: 36415; 70450; 70496; 70498; 70553; 80053; 80061; 81001; 82948; 83036; 84484; 85025; 85610; 85730; 87086; 93005; 93306; 96375; 99285; A9577; G0378; J1815; Q9967